=== PATIENT | male | born 1990 | race Caucasian/White ===

== ENCOUNTER 2024-03-05 10:48 | Emergency (ER) | payer OTHER, SELFPAY ==
[2024-03-05 11:00] VITALS: BP 132/92
[2024-03-05 11:38] LABS: % Basophils 0.5 % (0-2); % Eosinophils 4.6 % (0-6); % Immature Granulocytes 0.5 % (0-0.5); % Lymphocytes 15.8 % (20.5-51.1); % Monocytes 7.1 % (1.7-9.3); % Neutrophils 71.5 % (42.2-75.2); Absolute Basophils 0.1 10^3/uL (0-0.2); Absolute Eosinophils 0.5 10^3/uL (0-0.7); Absolute Immature Granulocytes 0.1 10^3/uL (0-0.05); Absolute Lymphocytes 1.8 10^3/uL (1.2-3.4); Absolute Monocytes 0.8 10^3/uL (0.1-0.6); Absolute Neutrophils 8.1 10^3/uL (1.4-6.5); Hematocrit 44.7 % (39.0-52.0); Hemoglobin 15.5 g/dL (13.0-18.0); Mean Corp Hgb Conc. 34.7 g/dL (33.0-37.0); Mean Corpuscular Hgb 30.2 pg (27.0-31.0); Nucleated Red Blood Cells % 0 % (-); Platelet Count 222 10^3/uL (130-400); Red Blood Cell Count 5.14 10^6/uL (4.70-6.10); Red Cell Dist. Width 11.5 % (11.5-14.5); White Blood Cell Count 11.3 10^3/uL (4.8-10.8)
[2024-03-05 11:50] LABS: ALT (SGPT) 30 U/L (0-50); AST (SGOT) 29 U/L (17-59); Albumin 4.8 g/dl (3.5-5.0); Alkaline Phosphatase 84 U/L (38-126); Blood Urea Nitrogen 17 mg/dl (9-20); Calcium 9.8 mg/dl (8.4-10.2); Carbon Dioxide 26 mmol/L (22-30); Chloride 101 mmol/L (98-107); Glucose 93 mg/dl (70-99); Potassium 4.2 mmol/L (3.5-5.1); Sodium 141 mmol/L (135-145); Total Bilirubin 1.1 mg/dl (0.2-1.3); Total Protein 8.9 g/dl (6.3-8.2); eGFR > 60.00
[2024-03-05] MEDS: XYLOCAINE VISCOUS CUP 15 ML PO (11:50)
[2024-03-05] MEDS: DECADRON 10 MG IV (11:50)
[2024-03-05] MEDS: TORADOL 30 MG IV (11:50)
[2024-03-05 12:02] LABS: Monotest Negative (Negative)
--- NOTE | 2024-03-05 12:16 | ED.GENMED ---
History of Present Illness
General
Chief Complaint: Throat Problem
Source: patient
Time Seen by Provider: 03/05/24 11:12
Travel History
Have you had any contact with someone who has COVID-19?: No
Do you have any symptoms of coronavirus? Fever > 100 degrees, chills, cough, shortness of breath, sore throat, loss of taste or smell, muscle aches, or headache?: No
History of Present Illness
History of Present Illness:
33-year-old male with no significant past medical history presenting emergency department for evaluation of sore throat since Thursday, was at his primary care today and was concerned for a right-sided peritonsillar abscess. Patient states he has
pain on both sides of his throat but the right does seem to be worse than the left. He notes that he has not been eating much but still able to drink without if occultly. He is unaware of any fevers. No known sick contacts, recent travel and is
currently not taking any antibiotics.
Past History
Past History
ED Past Medical History: None
ED Past Surgical History: None
Social History
Tobacco: Non-smoker
Alcohol: None
Drug: None
Personal: Single
Living: with family
Review of Systems
Review of Systems
All Other Systems: ROS reviewed and negative except as documented in HPI and ROS
Phy Exam
Physical Exam
Physical Exam:
GENERAL: Alert , in no apparent distress
EYE: conjunctiva clear
NECK: Supple, no significant adenopathy.
ENT: o/p clr, mmm. Tonsillar edema bilaterally however palatine tonsil larger than left, uvula midline, airway patent, no stridor or trismus, tolerating secretions
CARDIAC: Regular rate and rhythm
LUNGS: Clear breath sounds bilaterally, no acute respiratory distress, no wheezes/rales/rhonchi
NEUROLOGICAL: Alert and oriented
SKIN: Warm and dry, skin intact.
MUSCULOSKELETAL: well perfused.
PSYCH: Normal and appropriate interaction.
Scores
Heart Failure Risk
Heart Failure Risk Score: Not Applicable
Heart Score for Chest Pain Patients
STEMI patient?: Not applicable
Withdrawal Assessment of Alcohol
Withdrawal Assessment Completed?: Not applicable
Course
Orders/Labs/Results
Orders:
Orders
03/05/24 11:16
CT Neck With Iv Contrast Urgent
Comment:
Reason For Exam: right sided pain, tonsillar edema
Dexamethasone Sod Phosphate [Decadron] 10 mg IV NOW STA
Ketorolac [Toradol] 30 mg IV NOW STA
Viscous Lidocaine 2% [Xylocaine Viscous Cup] 15 ml PO NOW STA
03/05/24 11:29
Complete Blood Count/With Diff Urgent
Comprehensive Metabolic Panel Urgent
Monotest Urgent
03/05/24 11:34
Rapid Strep Group A Urgent
LAST Source: Throat/Pharynx
Specimen Description:
Date Specimen was Collected: 03/05/24
Time Specimen was Collected: 11:31
Abnormal Lab Results
03/05/24
11:29
WBC 11.3 H 10^3/uL
(4.8-10.8)
MPV 11.0 H fL
(7.4-10.4)
Abs Immat Gran (auto) 0.1 H 10^3/uL
(0-0.05)
Absolute Neuts (auto) 8.1 H 10^3/uL
(1.4-6.5)
Absolute Monos (auto) 0.8 H 10^3/uL
(0.1-0.6)
Lymphocytes % 15.8 L %
(20.5-51.1)
Total Protein 8.9 H g/dl
(6.3-8.2)
03/05/24 11:29
03/05/24 11:29
Vital Signs
Initial and Last Documented VS:
Initial Vital Signs
Temp Pulse Resp BP Pulse Ox
99 F 81 20 132/92 99
03/05/24 11:00 03/05/24 11:00 03/05/24 11:00 03/05/24 11:00 03/05/24 11:00
Last Documented Vital Signs
Temp Pulse Resp BP Pulse Ox
99 F 81 20 132/92 98
03/05/24 11:00 03/05/24 11:00 03/05/24 11:00 03/05/24 11:00 03/05/24 12:28
MDM/Problems Addressed
Differential Diagnosis Includes:
Strep throat, mono, peritonsillar abscess, retropharyngeal abscess, viral syndrome
MDM/Problems Addressed:
33-year-old male presenting emergency department for evaluation at the request of his primary care provider with concern for possible peritonsillar abscess. Patient does have tonsillar edema bilaterally and the right side is greater than the left.
Will obtain labs, treat with Toradol, Decadron and viscous lidocaine. CT ordered. Reassessment following.
*Radiology
Radiology exam reviewed: radiology read reviewed
*Pulse Oximetry
Patient hypoxic: no
*Critical Care Note
Total Time (30-74mins, 75-104mins- exclusive of procedures): Not Applicable
Patient Management
Discussion with other providers: [employer]ile [employer] Technician
Escalation/DeEscalation of care consider admission/obs:
Patient CT scan does show a small right peritonsillar abscess. I reviewed this with the ENT. He agrees with plan for patient to be managed at this time Augmentin, Medrol dose pack and will also prescribe viscous lidocaine for comfort. Patient can
follow-up in office early this coming week. Patient is aware of return precautions to the emergency department. Otherwise stable for discharge home.
ED Attending Note
-
Portions of this chart may have been created with voice recognition software.� Occasional wrong word or��sound alike� substitutions may have occurred due to the inherent limitations of voice recognition software.
Discharge Plan
Departure
Patient Disposition: Home (Routine Discharge)
Date of Disposition: 03/05/24
Time of Disposition: 13:25
Patient with high blood pressure during this ER visit?: No
Discharge Problem:
Abscess, peritonsillar
Instructions: Peritonsillar Abscess, Adult (DC)
Prescriptions:
New
amoxicillin-pot clavulanate 875-125 mg tablet
1 tab PO BID Qty: 20 0RF
methylprednisolone [Medrol (Dameon)] 4 mg tablets,dose pack
4 mg PO DIRECTED Qty: 21 0RF
lidocaine HCl [Lidocaine Viscous] 2 % solution
1 applic mucous membrane QID PRN (Reason: Pain) Qty: 100 0RF
Referrals:
Sadie Castro MD [Family Provider] -
Patricio Oh MD [Active] - (ENT - please call for appointment time on Thursday)
Interventions
Interventions:
*Risk Screen - Suicide Last Done: 03/05/24 11:00
*General Assessment Last Done: 03/05/24 11:00
*Neglect/Abuse Screening Last Done: 03/05/24 11:00
ED- Fall Risk Assessment Last Done: 03/05/24 12:28
ED-EENT Assessment Last Done: 03/05/24 12:28
ED- Pulmonary Assessment Last Done: 03/05/24 12:28
Discharge Date and Time
Print Language: PUERTO RICAN
[2024-03-05 13:40] VITALS: BP 129/71
== END 2024-03-05 13:45 | disposition home or self-care (01) ==
LOC: EMR 10:48
PROVIDERS: Physician Assistant Medical; EMERGENCY PHYSICIAN Emergency Medicine; FAMILY PHYSICIAN Internal Medicine Cardiovascular Disease
DX: J36 Peritonsillar abscess (principal)
CPT/HCPCS: 99285; 96374; 96375; 70491; 80053; 85025; 86308; 87070; 87880; Q9967